=== PATIENT | female | born 1985 | race Caucasian/White ===

== ENCOUNTER 2018-07-21 18:50 | Emergency (ER) | payer BC ==
--- NOTE | 2018-07-21 22:03 | ER Document Report ---
ED General - General Chief Complaint: Rib Pain Stated Complaint: RIB PAIN Time Seen by Provider: 07/21/18 20:12 Primary Care Provider: ELIAN GANDHI DPM [Primary Care Provider] - Follow up as needed Mode of Arrival: Ambulatory Information source: Patient TRAVEL OUTSIDE OF THE [place] IN LAST 30 DAYS: No - HPI Patient complains to provider of: Left sided chest pain Onset: Other - 1 week Onset/Duration: Sudden, Persistent Quality of pain: Sharp Severity: Severe Pain Level: 5 Associated symptoms: None Exacerbated by: Denies Relieved by: Denies Similar symptoms previously: No Recently seen / treated by doctor: No Notes: 33-year-old female with history of lupus and rheumatoid arthritis coming in today with left-sided chest pain. Symptoms for a week. No exacerbating event. No trauma. Hurts with deep breath. Also hurts to move her upper torso. She has had some pressure over the left mid chest during this period of time. - Related Data Allergies/Adverse Reactions: amoxicillin Allergy (Verified 07/21/18 18:52) Past Medical History - General Information source: Patient - Social History Smoking Status: Never Smoker Frequency of alcohol use: Occasional Drug Abuse: None Family History: Reviewed & Not Pertinent Patient has suicidal ideation: No Patient has homicidal ideation: No Renal/ Medical History: Denies: Hx Peritoneal Dialysis Psychiatric Medical History: Reports: Hx Depression Past Surgical History: Reports: Hx Urinary Tract Surgery - bladder reflux repair Review of Systems - Review of Systems Notes: Constitutional: No fevers. No chills. EENT: No eye redness. No eye pain. No ear pain. No sore throat. Cardiovascular: Positive for chest pain, positive for chest wall pain Respiratory: No cough. No shortness of breath. No respiratory distress. Gastrointestinal: No abdominal pain. No nausea, vomiting, or diarrhea. Genitourinary: Atraumatic. No lesions. No pain. No discharge. Musculoskeletal: Atraumatic. No swelling. No deformities. Skin: No rash or lesions. Lymphatic: No swollen lymph nodes. Neurologic: No headache. No syncope. Psychiatric: No suicidal or homicidal ideation. Physical Exam - Vital signs Vitals: Temp Pulse Resp BP Pulse Ox 98.4 F 68 15 114/83 97 07/21/18 19:03 07/21/18 19:03 07/21/18 19:03 07/21/18 19:03 07/21/18 19:03 - Notes Notes: General: Well-developed, well-nourished. In no acute distress. Non-toxic appearing. Cardiac: Well-perfused. Regular rate and rhythm. No murmurs, rubs, or gallops. Pulmonary: No respiratory distress. No cyanosis. Bilateral lung fiels are clear to auscultation. Abdominal: Non-distended. Non-rigid. Bowels sounds are present in all four quadrants. No guarding or rebound. HEENT: Head is atraumatic. Conjunctivae not reddened. No tearing. PERRL. EOMI. Orbits atraumatic. No periorbital swelling or erythema. Oropharynx is without erythema, swelling, or exudates. Neck: Supple. No adenopathy. No meningismus. Dermatologic: Warm with good turgor. No rash. Atraumatic. Chest: Tenderness to palpation of the left lower anterior ribs Musculoskeletal: Moves all extremities well. No range of motion deficits. no muscular or joint tenderness. No paraspinal muscle tenderness. no midline spinal tenderness or step-off. Genitourinary: Examination deferred Neurologic: No gross neurologic deficits. Psychiatric: Normal mood. Course - Re-evaluation Re-evalutation: 07/21/18 22:02 Given patient's history, will do full cardiac work-up including work-up for PE. 07/22/18 00:34 Patient's vitals are normal. The lower left ribs are very tender to palpate. The patient has normal vital signs. Her d-dimer is negative. Troponin n egative. EKG normal. Normal looking chest x-ray. I think this is most likely costochondritis. Will discharge with medication to treat this diagnosis - Vital Signs Vital signs: Temp Pulse Resp BP Pulse Ox 98.4 F 68 15 114/83 97 07/21/18 19:03 07/21/18 19:03 07/21/18 19:03 07/21/18 19:03 07/21/18 19:03 - Laboratory Result Diagrams: 07/21/18 22:19 07/21/18 22:19 Discharge - Discharge Clinical Impression: Costochondritis, acute Condition: Good Disposition: HOME, SELF-CARE Instructions: Costochondritis ([facility]) Prescriptions: Hydrocodone/Ibuprofen [Hydrocodone-Ibuprofen 7.5-200] 1 each PO Q8HP PRN #12 tablet PRN Reason: Referrals: [facility] [Provider Group] - Follow up as needed
[2018-07-21 22:31] LABS: ABSOLUTE BASOPHILS # (AUTO) 0.1 10^3/uL (0.0-0.2); ABSOLUTE EOSINOPHILS # (AUTO) 0.3 10^3/uL (0.0-0.6); ABSOLUTE LYMPHOCYTES (AUTO) 2.5 10^3/uL (0.5-4.7); ABSOLUTE MONOCYTES (AUTO) 0.6 10^3/uL (0.1-1.4); ABSOLUTE NEUT (AUTO) 5.1 10^3/uL (1.7-8.2); EOSINOPHILS % (AUTO) 3.6 % (0-6); HEMATOCRIT 39.5 % (36.0-47.0); HEMOGLOBIN 13.6 g/dL (12.0-15.5); LYMPHOCYTES % (AUTO) 28.4 % (13-45); MEAN CORPUSCULAR HEMOGLOBIN 31.6 pg (27.0-33.4); MEAN CORPUSCULAR HGB CONC 34.4 g/dL (32.0-36.0); MEAN CORPUSCULAR VOLUME 92 fl (80-97); MONOCYTES % (AUTO) 7.4 % (3-13); PLATELET COUNT 317 10^3/uL (150-450); RED CELL DISTRIBUTION WIDTH 12.6 % (11.5-14.0); SEGMENTED NEUTROPHILS % (AUTO) 59.6 % (42-78); TOTAL CELLS COUNTED % (AUTO) 100 %; WHITE BLOOD COUNT 8.6 10^3/uL (4.0-10.5)
[2018-07-21 22:49] LABS: ALANINE AMINOTRANSFERASE 32 U/L (9-52); ALBUMIN 4.6 g/dL (3.5-5.0); ALKALINE PHOSPHATASE 70 U/L (38-126); ANION GAP 11 (5-19); ASPARTATE AMINO TRANSFERASE 28 U/L (14-36); BILIRUBIN,DIRECT 0.2 mg/dL (0.0-0.4); BILIRUBIN,TOTAL 0.3 mg/dL (0.2-1.3); BLOOD UREA NITROGEN 15 mg/dL (7-20); CALCIUM 9.4 mg/dL (8.4-10.2); CARBON DIOXIDE 26 mmol/L (22-30); CHLORIDE 102 mmol/L (98-107); GLUCOSE 88 mg/dL (75-110); POTASSIUM 4.4 mmol/L (3.6-5.0); SODIUM 139.4 mmol/L (137-145); TOTAL PROTEIN 7.5 g/dL (6.3-8.2)
--- NOTE | 2018-07-21 23:53 | RADIOLOGY REPORT (SQ) ---
EXAM DESCRIPTION: XR RIBS UNILATERAL WITH CHEST COMPLETED DATE/TME: 07/21/2018 21:54 CLINICAL HISTORY: 33 years, Female, LEFT RIB PAIN COMPARISON: None. NUMBER OF VIEWS: 3 TECHNIQUE: Frontal view the chest and 2 views of the left ribs LIMITATIONS: None. FINDINGS: The heart size is normal. The lungs are clear. No pneumothorax. Negative for left rib fracture. IMPRESSION: Negative exam copyright 2010 [email or web address]- All Rights Reserved
[2018-07-22 01:32] VITALS: BP 104/72
--- NOTE | 2018-07-22 23:43 | EKG REPORT ---
SEVERITY:- ABNORMAL ECG - SINUS RHYTHM FIRST DEGREE AV BLOCK : Confirmed by: Dorene Trevizo MD 22-Jul-2018 23:42:43
== END 2018-07-22 01:16 | disposition home or self-care (01) ==
LOC: ER 18:50
DX: M94.0 Chondrocostal junction syndrome [Tietze] (principal); R07.89 Other chest pain; Z88.0 Allergy status to penicillin
CPT/HCPCS: 36415; 80053; 81025; 84484; 85025; 85379; 93005; 93010; 99284